=== PATIENT | female | born 1995 | race Caucasian/White ===

== ENCOUNTER 2017-10-25 07:35 | Emergency (ER) | payer BC ==
[2017-10-25 08:55] VITALS: BP 116/70
--- NOTE | 2017-10-25 10:59 | ED ---
Skin Complaint - HPI Summary HPI Summary: Patient is a 22-year-old female who presents emergency department for reevaluation of a sutured leg lacerations that occurred yesterday. Patient states she was drinking yesterday afternoon when she fell off of a stone wall. She sustained 2 lacerations to her left upper leg and was seen at the [facility] [place] where wounds were sutured. Pt. states she sent her mother a picture today of sutures and her mother was concerned with the way they looked and thought she should be re-evaluated. Pt. is questioning if plastic surgery would provide a better outcome. Pt. otherwise has no complaints. Symptoms are mild in severity. Touching affected area makes symptoms worse. Rest makes symptoms better. - History of Current Complaint Chief Complaint: EDLacSutureRecheck Time Seen by Provider: 10/25/17 07:54 Stated Complaint: FALL-LOOK AT STITCHES Hx Obtained From: Patient Pain Intensity: 3 Pain Scale Used: 0-10 Numeric - Allergy/Home Medications Allergies/Adverse Reactions: Allergies Allergy/AdvReac Type Severity Reaction Status Date / Time No Known Allergies Allergy Verified 10/25/17 07:50 Home Medications: Home Medications Norethindrone AC-Eth Estradiol [Microgestin 21 1.5-30 Tab] 1 tab PO DAILY [History Confirmed 10/25/17] PMH/Surg Hx/FS Hx/Imm Hx Previously Healthy: Yes - Immunization History Date of Tetanus Vaccine: UTD Infectious Disease History: No Infectious Disease History: Denies: Traveled Outside the [place] in Last 30 Days - Social History Occupation: Student Lives: Dormitory/Roommates Alcohol Use: Occasionally Substance Use Type: Reports: None Smoking Status (MU): Never Smoked Tobacco Review of Systems Positive: Other - Laceration to left upper leg All Other Systems Reviewed And Are Negative: Yes Physical Exam Triage Information Reviewed: Yes Vital Signs On Initial Exam: Initial Vitals Temp Pulse Resp BP Pulse Ox 98.0 F 66 132 132/74 100 10/25/17 07:45 10/25/17 07:45 10/25/17 07:45 10/25/17 07:45 10/25/17 07:45 Vital Signs Reviewed: Yes Appearance: Positive: Well-Appearing - Pt. sitting up in bed in NAD. Skin: Positive: Warm, Dry, Other - 2, roughly 5cm in length sutured wounds noted to the mid left lateral thigh. Mild ecchymosis surrounding. No erythema, edema or drainage. Would edges are well approximated. Head/Face: Positive: Normal Head/Face Inspection Eyes: Positive: Normal, REGULO Neck: Positive: Supple Musculoskeletal: Positive: Other - Sutured wounds to left upper leg as described above. No bony tenderness noted to left lower extremity. Neurological: Positive: Normal, CN Intact II-III Psychiatric: Positive: Normal Diagnostics - Vital Signs Vital Signs Temp Pulse Resp BP Pulse Ox 10/25/17 08:52 97.2 F 68 15 116/70 99 10/25/17 07:45 98.0 F 66 132 132/74 100 - Laboratory Lab Statement: Any lab studies that have been ordered have been reviewed, and results considered in the medical decision making process. Course/Dx - Course Course Of Treatment: Patient presenting for reevaluation of sutured wound to left upper leg that occurred yesterday. No signs of infection. Wound is well appearing and approximated. Advised patient that there is no need to take stitches out. Also advised her this would not be possible given that laceration occurred yesterday and risk infection is very high. Patient questioning if plastics would give her a better cosmetic result. Advised her she can follow up in their office if she wishes, information was provided. Advised suture removal in 10-14 days. Keep the wound clean and dry. Tylenol or Motrin for pain as directed. To return to the ER for redness, swelling or drainage from wound. Patient understands and agrees with plan. - Differential Diagnoses - Skin Complaint Differential Diagnoses: Abscess, Cellulitis - Diagnoses Provider Diagnoses: Encounter for re-check of laceration wound Discharge - Sign-Out/Discharge Documenting (check all that apply): Discharge/Admit/Transfer - Discharge Plan Condition: Good Disposition: HOME Patient Education Materials: Care For Your Stitches (ED) Referrals: [facility] - Luis Enrique GUTIERREZ [Primary Care Provider] - Dorian Brooke MD [Medical Doctor] - Additional Instructions: Can follow up with plastic surgery if desired Keep wound clean and dry Ice intermittently for swelling and bruising Suture removal in 10-14 days Tylenol or Motrin for pain as directed Return to ER for redness, swelling or drainage from suture site - Billing Disposition and Condition Condition: GOOD Disposition: HOME
== END 2017-10-25 08:52 | disposition home or self-care (01) ==
LOC: ED 07:35
DX: S71.112D Laceration without foreign body, left thigh, subsequent encounter (principal); W17.89XD Other fall from one level to another, subsequent encounter
CPT/HCPCS: 99281